=== PATIENT | male | born 1955 | race African-American/Black ===

== ENCOUNTER 2019-03-24 16:10 | Emergency (ER) | payer SELFPAY ==
[~2019-03-24] VITALS: Ht 182.9 cm; Wt 77.1 kg
--- NOTE | 2019-03-24 16:15 | NUR ---
ED Nurse Note: Pt brought in by [facility] due to left 4th toe injury. Per pt, he was previously in a hospital and stubbed his toe on a furniture. Xray was done and states possible fracture. Pt able to wiggle his left toe but with lesser movement. AAO x4 and ambulates with steady gait.
[2019-03-24] MEDS ORDERED: VISTARIL25 M1 PO (16:26)
[2019-03-24] MEDS ORDERED: CALCIUM CARBON500 M1 PO (16:26)
[2019-03-24] MEDS ORDERED: COLACE100 MG ORAL (16:26)
[2019-03-24] MEDS ORDERED: LISINOPRIL20 MG ORAL (16:26)
[2019-03-24] MEDS ORDERED: BENADRYL25 M3 PO (16:26)
[2019-03-24] MEDS ORDERED: ACETAMINOPHEN325 M1 ORAL (16:26)
[2019-03-24] MEDS ORDERED: NEURONTIN800 MG ORAL (16:26)
[2019-03-24 16:29] VITALS: BP 130/76
--- NOTE | 2019-03-24 16:54 | Emergency Room Report ---
History of Present Illness General Chief Complaint: Pain Source: Patient Present Illness HPI 64-year-old male sent by [facility] via ambulance c/o left 4th toe pain s/p stubbing toe against heavy chair 5 days ago. Denies numbness. Had outpatient xray done yesterday, shows possible 4th toe fracture. Allergies: Coded Allergies: ARIPIPRAZOLE (Verified Allergy, Unknown, 03/24/19) CLONAZEPAM (Verified Allergy, Unknown, 03/24/19) DIVALPROEX SODIUM (Verified Allergy, Unknown, 03/24/19) HALOPERIDOL (Verified Allergy, Unknown, 03/24/19) Patient History Past Medical History: HTN Past Surgical History: none Social History: Reports: smoking, drug use - cocaine Review of Systems All Other Systems: negative except mentioned in HPI Physical Exam Vital Signs Date Time Temp Pulse Resp B/P (MAP) Pulse Ox O2 Delivery O2 Flow Rate FiO2 03/24/19 16:05 98.1 69 18 125/80 (95) 96 Room Air Sp02 EP Interpretation: reviewed, normal Respiratory: chest non-tender, lungs clear, normal breath sounds, speaking full sentences Cardiovascular #1: regular rate, rhythm, no edema Musculoskeletal: other - left 4th toe: no deformity, no erythema, no ecchymosis , tender - left 4th toe, pain with ROM. Skin: no rash, warm/dry Medical Decision Making PA Attestation This patient was seen under the direct supervision of Dr. Owens, who directed all aspects of care and diagnostic interpretation. Diagnostic Impression: Primary Impression: Toe fracture, left ER Course ED course HPI: 67-year-old male complaining of left third finger pain since today. Patient states that he was working with wood and possibly may have gotten splinter underneath the fingernail. Pain is 8/10, with pressure. Denies numbness or weakness. Ddx: Fracture, sprain, dislocation. HPI & PE consistent with: Left toe fracture. Orders/ Interventions: Left foot xray ordered- prelim read: no acute fracutre or traumatic malalignment. Mild hallux valgus deformity of the first digit. Case discussed with Dr. Owens, who spoke with patient's PCP Dr. Mark Parks. Dr. Mark Parks stated that patient possibly had syncopal episode. I discussed with patient, patient denied syncopal episode. Patient refused labs. I also called [facility] and spoke to Robert IVEY, who states that patient did not have syncopal episode and was sent to ER for evaluation for left toe pain. Disposition: Patient fitted for post-op shoe. At this time pt. is stable for d/c to home. Will provide printed patient care instructions, and any necessary prescriptions. Care plan and follow up instructions have been discussed with the patient prior to discharge. Please note that this Emergency Department Report was dictated using [employer] tester technology software, occasionally this can lead to erroneous entry secondary to interpretation by the dictation equipment. Other X-Ray Diagnostic Results Other X-Ray Diagnostic Results : X-Ray ordered: left foot # of Views/Limited Vs Complete: Complete Indication: Pain EP Interpretation: Yes PA Xray: Interpretation reviewed Interpretation: no dislocation, no fractures Impression: No acute disease - interpreted by radiology Last Vital Signs Date Time Temp Pulse Resp B/P (MAP) Pulse Ox O2 Delivery O2 Flow Rate FiO2 03/24/19 16:29 98.1 72 15 130/76 99 Room Air Status: unchanged Disposition: HOME, SELF-CARE Condition: Stable Patient Instructions: Toe Fracture, [id number] Additional Instructions: Followup with PCP in 2 to 3 days or return to ER if worsening symptoms, new symptoms or sudden change in condition. Cruzito Issa Mar 24, 2019 16:54
--- NOTE | 2019-03-24 18:39 | NUR ---
ED Nurse Note: Report given to Renato IVEY of [facility].
[2019-03-24 20:00] VITALS: BP 128/70
--- NOTE | 2019-03-24 20:00 | NUR ---
ER DISCHARGE NOTE: Patient is cleared to be discharged per PA, pt is aox4, on room air, with stable vital signs. pt was given dc instructions, pt was able to verbalize understanding, pt id band removed. pt was transferred with [facility] ambulance back to [facility] facility with all belongings sent.
--- NOTE | 2019-03-27 11:17 | Diagnostic Imaging Report ---
Indication: Foot pain Comparison: None Findings: 3 views of the left foot were obtained. No acute fractures, malalignment, erosions or periostitis are identified. There is a mild hallux valgus. Soft tissues are unremarkable. Impression: No acute findings
== END 2019-03-24 20:00 | disposition home or self-care (01) ==
LOC: EDBD 16:10 → EMR 17:15
DX: S92.502A Displaced unspecified fracture of left lesser toe(s), initial encounter for closed fracture (principal); M79.645 Pain in left finger(s); I10 Essential (primary) hypertension; F17.200 Nicotine dependence, unspecified, uncomplicated; F14.10 Cocaine abuse, uncomplicated; Z88.8 Allergy status to other drugs, medicaments and biological substances; W22.03XA Walked into furniture, initial encounter; Y92.9 Unspecified place or not applicable
CPT/HCPCS: 99283